=== PATIENT | female | born 2000 | race Caucasian/White ===

== ENCOUNTER 2025-06-15 14:44 | Outpatient (CLI) | payer BC ==
--- NOTE | 2025-06-15 15:24 | RADIOLOGY REPORT ---
EXAM: CT CT LUMBAR SPINE HISTORY: MYALGIA;CERVICALGIA;ADOLESCENT IDIOPATHIC SCOLIOSIS COMPARISON: None CTDIvol mGy, DLP mGy*cm. TECHNIQUE: Multiple axial CT images of the spine were obtained using bone algorithm. Axial and coronal reformatting was done. Bone and soft tissue windows were reviewed. FINDINGS: No evidence of definite acute fracture, spinal dislocation, or significant appearing acute subluxation is seen. Levoscoliosis with the apex at approximately L2. IMPRESSION: No definite CT evidence of acute fracture or dislocation of the bony lumbar spine.
== END 2025-06-15 23:59 | disposition home or self-care (01) ==
LOC: RAD 14:44
PROVIDERS: ATTEND Pediatrics Sports Medicine
DX: M41.86 Other forms of scoliosis, lumbar region (principal); M54.50 Low back pain, unspecified; M79.10 Myalgia, unspecified site; M54.2 Cervicalgia; M41.129 Adolescent idiopathic scoliosis, site unspecified; M46.1 Sacroiliitis, not elsewhere classified
CPT/HCPCS: 72131